=== PATIENT | female | born 1965 | race Caucasian/White ===

== ENCOUNTER 2017-05-24 15:59 | Outpatient (CLI) | payer BC ==
[2017-05-24 17:04] LABS: #Eosinphils 0.3 thou/uL (0.0-0.7); #Lymphocytes 2.9 thou/uL (1.20-3.40); #Monocytes 0.6 thou/uL (0.11-0.59); #Neutrophils 4.1 thou/uL (1.40-6.50); %Basophils 0.4 % (0.0-1.0); %Eosinophils 3.8 % (0.0-10.0); %Lymphocytes 36.6 % (21.0-51.0); %Monocytes 7.6 % (0.0-10.0); Hematocrit 45.4 % (36.0-47.0); Mean Platelet Volume 6.9 fL (7.4-10.4); Red Blood Cell (RBC) Count 4.89 mill/uL (4.20-5.40)
[2017-05-24 17:37] LABS: Anion Gap 11 mmol/L (10-20); BUN (Urea Nitrogen) 20 mg/dL (9.8-20.1); Calc. Creatinine Clearance 0 mL/min (70-130); Carbon Dioxide 27 mmol/L (22-29); Chloride 104 mmol/L (98-107); Estimated GFR-MDRD 83
== END 2017-05-24 16:00 | disposition home or self-care (01) ==
LOC: LABBT 15:59
PROVIDERS: ATTEND Surgery
DX: Z01.812 Encounter for preprocedural laboratory examination (principal); N60.99 Unspecified benign mammary dysplasia of unspecified breast
CPT/HCPCS: 80048; 85025

== ENCOUNTER 2017-05-27 06:52 | Day surgery (SDC) | payer BC ==
[2017-05-24 16:18] VITALS: BMI 26.9
--- NOTE | 2017-05-27 09:22 | MMO ---
NEEDLE LOCALIZATION: HISTORY: Right breast ductal hyperplasia and papilloma. COMPARISON: Last mammogram 01/25/17 with stereotactic biopsy 01/25/17. TECHNIQUE: The patient was brought to the mammography suite where all questions were answered. Informed consen t was already obtained. The timeout was performed. The breast was prepped and draped in normal sterile fashion. Two mL of Lidocaine was instilled into the superficial soft tissues for local anesthesia. Using a 10 cm needle, the biopsy clip was localized. The clip is within the curl of the hook approx imately 5 mm anterior to the hook and 1.5 cm craniad to the concavity of the curl. IMPRESSION: Technically successful needle localization. POS: [facility]
[2017-05-27] MEDS ORDERED: Heparin 5,000 UNITS/ML VIAL ONE (09:58)
[2017-05-27] MEDS ORDERED: Lidocaine 2% w/Epinephrine 1:200K 20 ML VIAL ONE (11:44)
[2017-05-27] MEDS ORDERED: Sodium Chloride 0.9% 10 ML ONE (11:45)
[2017-05-27] MEDS ORDERED: Gentamicin 80 MG/2 ML VIAL ONE (11:45)
[2017-05-27] MEDS ORDERED: EPINEPHrine 1 MG/ML AMP ONE ×2 (11:45→14:04)
[2017-05-27] MEDS ORDERED: Bupivacaine 0.25% HCL 30 ML VIAL ONE ×2 (11:45→14:05)
[2017-05-27] MEDS ORDERED: Fentanyl 250 MCG/5 ML VIAL ONE (11:57)
[2017-05-27] MEDS ORDERED: Midazolam HCl 2 mg/2 ml Vial ONE (12:18)
[2017-05-27] MEDS ORDERED: Lidocaine 2% PF 10 ML AMP (For Epidural Use) ONE (12:30)
[2017-05-27] MEDS ORDERED: Dexamethasone 20 MG/5 ML VIAL ONE (12:30)
[2017-05-27] MEDS ORDERED: Ondansetron HCl/PF 4 MG/2 ML Vial ONE (12:30)
[2017-05-27] MEDS ORDERED: Glycopyrrolate 0.2 MG/ML 5 ML SYRINGE ONE (12:30)
[2017-05-27] MEDS ORDERED: Propofol 200 MG/20 ML VIAL ONE (12:30)
[2017-05-27] MEDS ORDERED: Sodium Chloride 0.9% 30 ML ONE (14:04)
--- NOTE | 2017-05-27 15:26 | MMO ---
SURGICAL SPECIMEN MAMMOGRAM: Date: 05/27/17 HISTORY: Right breast ductal hyperplasia. FINDINGS/IMPRESSION: A surgical clip and localization wire are seen in the provided specimen. Findings called over the telephone to Dr. Tera Louis at 1323 hours. CODE CR. POS: [facility]
[2017-05-27] MEDS ORDERED: Fentanyl 100 MCG/2 ML VIAL ONE ×2 (16:04→16:24)
--- NOTE | 2017-05-27 19:40 | OP ---
PREOPERATIVE DIAGNOSES: 1. Breast mass. 2. Macromastia. POSTOPERATIVE DIAGNOSES: 1. Breast mass. 2. Macromastia. PROCEDURE: 1. Lumpectomy by Dr. Louis. 2. Post-lumpectomy breast reduction (2398.50). DESCRIPTION OF PROCEDURE: Following induction of adequate anesthesia, the patient was prepped and d raped in the usual sterile fashion in the supine position. The right superior lateral [place] pattern flap was elevated to identify the needle localized, the needles were used for localization. Dr. Francisco tirado then performed a lumpectomy. The lumpectomy was at approximately 10 o'clock position relativel y close the pectoralis as well as behind the nipple itself. Radiologically, the desired specimen wa s confirmed as excised. The skin flaps were then raised medially and superiorly. Care was taken to try to preserve the perforators medially as well as centrally given the defect created by the lumpe ctomy. Dermoglandular units were then resected medially and laterally. The lateral dermoglandular units was resected with stitches being placed to rosetta the borders of the previous lumpectomy. Three london were also placed in the tissue where the lumpectomy had been done at its posterior margin. No further resection past the lumpectomy was done on the posterior margin. The nipple was still no cal to have good viability. The amount resected was 335.7 grams plus whateverthe lumpectomy specime n weighed. The field was copiously irrigated and inspected for meticulous hemostasis prior to closu re of the interrupted 3-0 PDS suture. The nipple was then brought out through a 42 mm nipple defect and inset using interrupted and running 3-0 Monocryl suture. Similar procedure was then done on the contralateral left side to provide symmetry to the lumpectomy reduction on the right. The patient tolerated the procedure well.
== END 2017-05-27 18:15 ==
LOC: SDC 06:52
PROVIDERS: ATTEND Surgery
PROC: 0HBT0ZZ Excision of Right Breast, Open Approach (ICD-10-PCS; principal; 2017-05-27)
PROC: 0HQX0ZZ Repair Left Nipple, Open Approach (ICD-10-PCS; principal; 2017-05-27)
PROC: 0HQW0ZZ Repair Right Nipple, Open Approach (ICD-10-PCS; principal; 2017-05-27)
PROC: 0HBV0ZZ Excision of Bilateral Breast, Open Approach (ICD-10-PCS; principal; 2017-05-27)
DX: N63.11 Unspecified lump in the right breast, upper outer quadrant (principal); N60.99 Unspecified benign mammary dysplasia of unspecified breast; I10 Essential (primary) hypertension; E78.5 Hyperlipidemia, unspecified; Z79.82 Long term (current) use of aspirin; Z79.51 Long term (current) use of inhaled steroids; Z79.899 Other long term (current) drug therapy; Z88.5 Allergy status to narcotic agent; Z97.5 Presence of (intrauterine) contraceptive device; Z90.710 Acquired absence of both cervix and uterus; Z90.722 Acquired absence of ovaries, bilateral; Z90.79 Acquired absence of other genital organ(s); Z98.890 Other specified postprocedural states; Z80.1 Family history of malignant neoplasm of trachea, bronchus and lung
CPT/HCPCS: 19281; 76098; 96374; A4216; J0171; J1100; J1580; J1644; J2001; J2250; J2270; J2405; J2704; J3010; J3370; J3490; Q9968; S0020

== ENCOUNTER 2018-02-20 15:51 | Outpatient (CLI) | payer OTHER | END 2018-02-20 15:52 | disposition home or self-care (01) | LOC: BICMAMMO 15:51 | PROVIDERS: ATTEND Family Medicine | DX: Z12.31 Encounter for screening mammogram for malignant neoplasm of breast (principal); R92.1 Mammographic calcification found on diagnostic imaging of breast; Z80.3 Family history of malignant neoplasm of breast | CPT/HCPCS: 77063; 77067 ==

== ENCOUNTER 2019-03-13 15:42 | Outpatient (CLI) | payer OTHER ==
--- NOTE | 2019-03-13 16:24 | MMO ---
Bilateral MAMMO Bilat Screen [facility]. CLINICAL HISTORY: Patient is 53 years old and is seen for screening. The patient has the following family history of breast cancer: mother. The patient has no personal history of cancer. The patient has a history of right Lumpectomy in 2017 - benign - "PRE-CANCEROUS". VIEWS: The views performed were: bilateral craniocaudal with tomosynthesis and bilateral mediolateral oblique with tomosynthesis. FILMS COMPARED: The present examination has been compared to prior imaging studies performed at [facility] on 02/20/2018, and at [facility] on 04/28/2015, 06/16/2016 and 06/17/2016. MAMMOGRAM FINDINGS: The breasts are heterogeneously dense, which could obscure a lesion on mammography. There are new dystrophic calcifications seen in both breasts. There are no suspicious masses, suspicious calcifications, or new areas of architectural distortion. IMPRESSION: THERE IS NO MAMMOGRAPHIC EVIDENCE OF MALIGNANCY. A ROUTINE FOLLOW-UP MAMMOGRAM IN 1 YEAR IS RECOMMENDED. THE RESULTS OF THIS EXAM WERE SENT TO THE PATIENT. ACR BI-RADS Category 2 - Benign finding MAMMOGRAPHY NOTE: 1. A negative mammogram report should not delay a biopsy if a dominant of clinically suspicious mass is present. 2. Approximately 10% to 15% of breast cancers are not detected by mammography. 3. Adenosis and dense breasts may obscure an underlying neoplasm. Reported by: ESTUARDO MICHELE MD Electonically Signed: [id number]
== END 2019-03-13 15:43 | disposition home or self-care (01) ==
LOC: BICMAMMO 15:42
PROVIDERS: ATTEND Family Medicine
DX: Z12.31 Encounter for screening mammogram for malignant neoplasm of breast (principal); Z80.3 Family history of malignant neoplasm of breast
CPT/HCPCS: 77063; 77067

== ENCOUNTER 2021-04-16 15:07 | Outpatient (CLI) | payer BC | END 2021-04-16 15:08 | disposition home or self-care (01) | LOC: BICMAMMO 15:07 | PROVIDERS: ATTEND Family Medicine | DX: Z12.31 Encounter for screening mammogram for malignant neoplasm of breast (principal); Z98.890 Other specified postprocedural states; Z80.3 Family history of malignant neoplasm of breast | CPT/HCPCS: 77063; 77067 ==

== ENCOUNTER 2024-11-29 09:08 | Outpatient (CLI) | payer BC ==
[2024-11-29 10:22] LABS: #Basophils 0.09 10x3/uL (0.0-0.2); %Basophils 1.6 % (0.0-1.0); %Eosinophils 3.2 % (0.0-10.0); %Lymphocytes 46.8 % (21.0-51.0); %Monocytes 10.2 % (0.0-10.0); %Neutrophils 37.8 % (42.0-75.0); Hematocrit 40.8 % (36.0-47.0); Hemoglobin 13.1 g/dL (12.0-16.0); Mean Corpuscular HGB CONC 32.1 g/dL (32.0-36.0); Mean Corpuscular Hemoglobin 28.7 pg (27.0-31.0); Mean Corpuscular Volume 89.5 fL (78.0-98.0); Mean Platelet Volume 8.9 fL (7.4-10.4); Platelet Count 269 10x3/uL (130-400); RBC Distribution Width 12.2 % (11.5-14.5); Red Blood Cell (RBC) Count 4.56 mill/uL (4.20-5.40)
[2024-11-29 10:33] LABS: Bacteria/HPF None Seen HPF (None Seen); Bilirubin Negative (Negative); Blood, Urine Negative (Negative); Clarity Turbid (Clear); Glucose, Urine (Dipstick) Normal (Negative); Ketone, Urine Negative (Negative); Leukocyte 250 Leu/uL (Negative); Nitrite Negative (Negative); Protein, Urine (Dipstick) Negative (Neg-Trace); RBC/HPF 0-3 HPF (0-3); Specific Gravity, Urine 1.004 (1.002-1.036); Urobilinogen Normal mg/dL (Less than 2)
[2024-11-29 10:37] LABS: INR-International Normal Ratio 0.9; Prothrombin Time 12.4 sec (12.0-14.7)
[2024-11-29 11:00] LABS: Anion Gap 10 mmol/L (10-20); BUN (Urea Nitrogen) 15 mg/dL (9.8-20.1); Calc. Creatinine Clearance 0 mL/min (70-130); Calcium 9.3 mg/dL (7.8-10.44); Carbon Dioxide 28 mmol/L (23-31); Chloride 107 mmol/L (98-107); Estimated GFR 100; Glucose 82 mg/dL (80-115); Potassium 3.8 mmol/L (3.5-5.1); Sodium 141 mmol/L (136-145)
== END 2024-11-29 09:09 | disposition home or self-care (01) ==
LOC: LABBT 09:08
PROVIDERS: ATTEND Orthopaedic Surgery
DX: Z01.818 Encounter for other preprocedural examination (principal); M17.11 Unilateral primary osteoarthritis, right knee
CPT/HCPCS: 71046; 80048; 81001; 85025; 85610; 87081; 93005; 93010

== ENCOUNTER 2024-11-29 10:17 | Outpatient (CLI) | payer BC, OTHER, SELFPAY | END 2024-11-29 10:18 | disposition home or self-care (01) | LOC: CT 10:17 | PROVIDERS: ATTEND Orthopaedic Surgery | DX: M17.11 Unilateral primary osteoarthritis, right knee (principal); M93.971 Osteochondropathy, unspecified, right ankle and foot ==

== ENCOUNTER 2025-03-19 15:49 | Outpatient (CLI) | payer BC | END 2025-03-19 15:50 | disposition home or self-care (01) | LOC: BICMAMMO 15:49 | PROVIDERS: ATTEND Student in an Organized Health Care Education/Training Program | DX: Z12.31 Encounter for screening mammogram for malignant neoplasm of breast (principal); Z91.89 Other specified personal risk factors, not elsewhere classified | CPT/HCPCS: 77063; 77067 ==